=== PATIENT | female | born 2000 | race Caucasian/White ===

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

== ENCOUNTER 2023-10-04 11:03 | Emergency (ER) | payer MEDICAID, OTHER ==
[~2023-10-04] VITALS: Ht 162.6 cm; Wt 2.3 kg
[2023-10-04 11:54] VITALS: BP 125/77; PULSE 64; RESP 16; TEMP 98.9; O2SAT 95
== END 2023-10-04 13:08 | disposition home or self-care (01) ==
LOC: ER 11:03
DX: S93.502A Unspecified sprain of left great toe, initial encounter (principal); F17.210 Nicotine dependence, cigarettes, uncomplicated; X50.0XXA Overexertion from strenuous movement or load, initial encounter; Y93.89 Activity, other specified; Y92.89 Other specified places as the place of occurrence of the external cause; Y99.8 Other external cause status
CPT/HCPCS: 73660